=== PATIENT | female | born 1980 | race Caucasian/White ===

== ENCOUNTER → 2017-04-15 | Outpatient (CLI) | payer BC ==
[~2017-04-15] MED LIST: COLACE 100MG C100 MG PO; HYDROCODON-ACE1 EAC4 PO; IBUPROFEN600 MG PO; NORCO 10-325 T1 EACH PO; PERCOCET 10-321 EACH PO; TRAMADOL HCL50 MG PO
== END ==
LOC: EXRD 10:28
DX: R10.9 Unspecified abdominal pain (principal); R31.9 Hematuria, unspecified; N97.1 Female infertility of tubal origin
CPT/HCPCS: 74000

== ENCOUNTER → 2017-04-15 | Outpatient (CLI) | payer BC | LOC: US 14:52 | DX: R10.31 Right lower quadrant pain (principal); M54.9 Dorsalgia, unspecified; N85.8 Other specified noninflammatory disorders of uterus | CPT/HCPCS: 76830 ==

== ENCOUNTER 2017-07-13 07:27 | Inpatient (IN) | payer BC ==
[~2017-07-13] VITALS: Ht 175.3 cm; Wt 80.3 kg
[~2017-07-13 07:27] MED LIST changes: -COLACE 100MG C100 MG PO; -IBUPROFEN600 MG PO; -PERCOCET 10-321 EACH PO
--- NOTE | 2017-07-13 16:53 | NUR ---
PATIENT ARRIVED TO UNIT AT 1425 FROM PACU. PLACED ON MONITOR. VSS. MEDICATED BY CELL OPERATOR. INFORMED PATIENT THAT NEXT PAIN MEDICATION IS SCHEDULED FOR 1600. ADBOMINAL DRESSING (4X4S WITH TAPE) INTACT AND NO DRAINAGE NOTED. RADHA CARE PROVIDED. NO DRAINAGE NOTED ON PAD. YUEN PATENT TO BEDSIDE DRAINAGE. NETTE DRAIN PATENT TO ABDOMINAL AREA. DRAINING MODERATE AMOUNT OF BLOODY DRAINAGE.
[2017-07-13 18:27] LABS: HEMOGLOBIN 13.2 gm/dl (12.3-15.3)
--- NOTE | 2017-07-13 18:49 | NUR ---
CALLED AND INFORMED DR Gabriella WHITFIELD OF H/H RESULT AND OVERALL STATUS.
[2017-07-14 06:46] LABS: HEMOGLOBIN 11.5 gm/dl (12.3-15.3)
[2017-07-15] MEDS ORDERED: PERCOCET 10-321 EACH PO (13:09)
[2017-07-15] MEDS ORDERED: IBUPROFEN600 MG PO (13:10)
[2017-07-15] MEDS ORDERED: COLACE 100MG C100 MG PO (13:11)
== END 2017-07-15 13:35 | disposition home or self-care (01) | DRG 743 ==
LOC: ZOBSOF 07:27 → OB 14:52
PROVIDERS: ADMIT Obstetrics & Gynecology
PROC: 0UT20ZZ Resection of Bilateral Ovaries, Open Approach (ICD-10-PCS; 2017-07-13)
PROC: 0UT70ZZ Resection of Bilateral Fallopian Tubes, Open Approach (ICD-10-PCS; 2017-07-13)
PROC: 0TJB8ZZ Inspection of Bladder, Via Natural or Artificial Opening Endoscopic (ICD-10-PCS; 2017-07-13)
PROC: 0UT90ZZ Resection of Uterus, Open Approach (ICD-10-PCS; principal; 2017-07-13 10:45)
PROC: 0UTC0ZZ Resection of Cervix, Open Approach (ICD-10-PCS; 2017-07-13 10:45)
DX: N80.9 Endometriosis, unspecified (principal); N94.89 Other specified conditions associated with female genital organs and menstrual cycle; N70.11 Chronic salpingitis; E78.5 Hyperlipidemia, unspecified; Z82.49 Family history of ischemic heart disease and other diseases of the circulatory system; Z82.3 Family history of stroke; Z83.3 Family history of diabetes mellitus; Z84.89 Family history of other specified conditions
CPT/HCPCS: 36415; 84703; 85014; 85018; J0690; J1100; J1885; J2250; J2270; J2405; J2550; J2710; J3010; J7050; J7120; Q2039